=== PATIENT | female | born 1975 | race Caucasian/White ===

== ENCOUNTER 2017-03-16 05:06 | Day surgery (SDC) | payer OTHER ==
[~2017-03-16] VITALS: Ht 165.1 cm; Wt 98.4 kg
[~2017-03-16 05:06] MED LIST: ASPIRIN325 MG PO; CATAPRES0.1 MG PO; CRESTOR10 MG PO; CYANOCOBAL1000 MCG/2 IM; DAILY VALUE1 EACH PO; ELAVIL10 MG PO; ERGOCALCIF50000 UNIT PO; FISH OIL 1,0001 EA11 PO; FLAXSEED340 GM PO; FLEXERIL10 MG PO; FLONASE ALLERG9.9 ML BOTH NARES; GELNIQUE 10%30 GM TD; KLONOPIN1 MG PO; KLOR-CON 1010 ME1 PO; LASIX20 MG PO; LOFIBRA,TRIGLI160 MG PO; MAGNESIUM400 M1 PO; METFORMIN HCL500 MG PO; NEXIUM40 MG PO; NIACIN500 M4 PO; PREMARIN VAGI42.5 GM TP; SINGULAIR10 MG PO; SYNTHROID100 MCG PO; SYNTHROID50 MCG PO; TENORMIN25 MG PO; TENORMIN50 MG PO; ULTRAM50 MG PO; VIIBRYD40 MG PO; VITAMIN D32000 UNI1 PO; VITAMIN D35000 UNIT/ PO; ZYRTEC10 M3 PO
[2017-03-16 06:06] LABS: POINT-OF-CARE METER ID UU14174212
[2017-03-16 06:13] VITALS: BP 123/75
[2017-03-16 08:45] LABS: POINT-OF-CARE METER ID UU13113675
[2017-03-16 09:13] VITALS: BP 104/55
[2017-03-16 10:10] VITALS: BP 103/57
== END 2017-03-16 10:17 | disposition home or self-care (01) ==
LOC: SDC 05:06
PROVIDERS: Obstetrics & Gynecology Gynecologic Oncology
PROC: 0U5G7ZZ Destruction of Vagina, Via Natural or Artificial Opening (ICD-10-PCS; principal; 2017-03-16)
DX: N89.0 Mild vaginal dysplasia (principal); I10 Essential (primary) hypertension; E11.9 Type 2 diabetes mellitus without complications; E78.5 Hyperlipidemia, unspecified; K21.9 Gastro-esophageal reflux disease without esophagitis; E55.9 Vitamin D deficiency, unspecified; Z79.82 Long term (current) use of aspirin; Z88.1 Allergy status to other antibiotic agents; Z88.2 Allergy status to sulfonamides; Z91.09 Other allergy status, other than to drugs and biological substances
CPT/HCPCS: 82948; 88305; J0690; J1170; J1885; J2250; J2405; J3010